=== PATIENT | female | born 1985 | race Caucasian/White ===

== ENCOUNTER 2016-11-10 10:43 | Inpatient (IN) | payer MEDICAID ==
[~2016-11-10] VITALS: Ht 149.9 cm; Wt 76.2 kg
[2016-11-10] MEDS ORDERED: PREN-380 PO (13:07)
[2016-11-10] MEDS ORDERED: METHYLERGONOVINE 0.2 MG/ML AMP IM PRN (15:15)
[2016-11-10] MEDS ORDERED: AMPICILLIN 2,000 MG in NACL 0.9% MINI-BAG PLUS 100 ML IV SCH (15:15)
[2016-11-10] MEDS ORDERED: PROMETHAZINE 25 MG/ML VIAL IVP PRN (15:15)
[2016-11-10] MEDS ORDERED: OXYTOCIN 10 UNITS/ML VIAL IM SCH (15:15)
[2016-11-10] MEDS ORDERED: NALBUPHINE HYDROCHLORIDE 10 MG/ML VIAL IVP PRN (15:15)
[2016-11-10] MEDS ORDERED: CARBOPROST 250 MCG/ML AMP IM PRN (15:15)
[2016-11-10] MEDS ORDERED: OXYTOCIN 20 UNITS/LR PREMIX 1,000 ML IV SCH ×2 (15:25→22:16)
[2016-11-10 15:55] LABS: BASOPHILS # (AUTO) 0.2 K/uL (0.00-0.22); BASOPHILS % (AUTO) 2.1 % (0.0-2.0); EOSINOPHILS # (AUTO) 0.1 K/uL (0-0.4); EOSINOPHILS % (AUTO) 1.6 % (0.0-4.0); HEMATOCRIT 37.5 % (36-48); HEMOGLOBIN 12.6 g/dL (12.0-16.0); LYMPHOCYTES # (AUTO) 1.7 K/uL (2.5-16.5); LYMPHOCYTES % (AUTO) 20.4 % (20.5-51.1); MEAN CORPUSCULAR HEMOGLOBIN 31 pg (27-31); MEAN CORPUSCULAR HGB CONC 34 g/dL (33-37); MEAN CORPUSCULAR VOLUME 91 fL (80-94); MONOCYTES # (AUTO) 0.3 K/uL (0.8-1.0); MONOCYTES % (AUTO) 3.1 % (1.7-9.3); NEUTROPHILS # (AUTO) 5.9 K/uL (1.8-7.7); NEUTROPHILS % (AUTO) 72.8 % (42.2-75.2); PLATELET COUNT (AUTO) 152 K/uL (140-450); RED BLOOD CELL COUNT(AUTO) 4.13 MIL/uL (4.20-5.40); RED CELL DISTRIBUTION WIDTH 12.9 % (11.6-13.7); WHITE BLOOD COUNT (AUTO) 8.2 K/uL (4.8-10.8)
[2016-11-10] MEDS ORDERED: AMPICILLIN 1,000 MG in NACL 0.9% MINI-BAG PLUS 50 ML IV SCH (16:00)
[2016-11-10 16:10] LABS: ANION GAP 14.6 (8-16); CALCIUM 9.1 mg/dL (8.5-10.1); CARBON DIOXIDE 23.2 mmol/L (21-32); CREATININE 0.7 mg/dL (0.6-1.3); POTASSIUM 3.8 mmol/L (3.5-5.1); TOTAL BILIRUBIN 0.3 mg/dL (0.0-1.0); TOTAL PROTEIN, SERUM 7.6 g/dL (6.4-8.2)
[2016-11-10 16:34] LABS: HIV RAPID SCREEN NON-REACTIVE (NON REACTIV)
[2016-11-10 16:38] LABS: APPEARANCE,URINE CLEAR (CLEAR); BILIRUBIN,URINE NEGATIVE (NEGATIVE); BLOOD, URINE NEGATIVE (NEGATIVE); COLOR,URINE YELLOW (YELLOW); LEUKOCYTE ESTERASE ,URINE NEGATIVE (NEGATIVE); NITRITE, URINE NEGATIVE (NEGATIVE); PROTEIN,URINE NEGATIVE (NEGATIVE); UGLUCOSE NEGATIVE (NEGATIVE); UROBILINOGEN,URINE 0.2 EU/dL (0.2 - 1)
[2016-11-10] MEDS: LACTATED RINGERS 1,000 ML IV SCH (17:35)
[2016-11-10 17:44] VITALS: BP 94/52
[2016-11-10] MEDS: CLINDAMYCIN 900 MG in DEXTROSE 5% 100 ML IV SCH (17:59)
[2016-11-10] MEDS ORDERED: NALBUPHINE 10 MG/ML AMP IVP PRN (22:20)
[2016-11-10 23:43] LABS: INR 0.9 (0.8-1.2); PARTIAL THROMBOPLASTIN TIME 27.1 secs (22-35.6); PROTHROMBIN TIME 9.3 secs (10.8-13.4)
[2016-11-11] MEDS: CLINDAMYCIN 900 MG in DEXTROSE 5% 100 ML IV SCH (02:19)
[2016-11-11] MEDS ORDERED: CLINDAMYCIN 900 MG/6 ML VIAL IV ONE (02:20)
[2016-11-11] MEDS ORDERED: OXYTOCIN 20 UNITS/LR PREMIX 1,000 ML IV ONE (02:57)
[2016-11-11] MEDS: LACTATED RINGERS 1,000 ML IV SCH ×2 (06:45→22:00)
--- NOTE | 2016-11-11 08:10 | NUR ---
PATIENT HAS BEEN SCREENED AND CATEGORIZED LOW NUTRITION RISK. PATIENT WILL BE SEEN WITHIN 7 DAYS OF ADMISSION. 11/17/[address]
[2016-11-11] MEDS ORDERED: BUPIVACAINE 0.125%/NS PREMIX 250 ML ONE ×2 (08:30→23:26)
[2016-11-11] MEDS ORDERED: LIDOCAINE 1% 50 ML ONE (12:38)
[2016-11-11 12:42] LABS: RAPID PLASMA REAGIN NON-REACTIVE (Non Reactiv)
[2016-11-12] MEDS ORDERED: OXYTOCIN 20 UNITS/LR PREMIX 1,000 ML IV ONE (02:36)
[2016-11-12] MEDS ORDERED: OXYTOCIN 10 UNITS/ML VIAL ONE ×2 (02:36→18:07)
[2016-11-12] MEDS ORDERED: CLINDAMYCIN 900 MG in DEXTROSE 5% 100 ML IV SCH (12:00)
[2016-11-12] MEDS ORDERED: MISOPROSTOL 100 MCG TAB ONE (13:17)
[2016-11-12] MEDS ORDERED: OXYTOCIN 20 UNITS/LR PREMIX 1,000 ML IV SCH (19:26)
[2016-11-12] MEDS ORDERED: oxyCODONE/APAP 5/325 MG 1 TAB TAB PO PRN (19:30)
[2016-11-12] MEDS ORDERED: MEASLES, MUMPS, AND RUBELLA 1 VIAL SQVAC PRN (19:30)
[2016-11-12] MEDS ORDERED: WITCH HAZEL 40 PAD PACKAGE TP PRN (19:30)
[2016-11-12] MEDS ORDERED: BENZOCAINE/MENTHOL 20%-0.5% 60 GM CAN TP PRN (19:30)
[2016-11-12] MEDS ORDERED: BISACODYL 5 MG TABEC PO PRN (19:30)
[2016-11-13 08:03] LABS: BASOPHILS % (AUTO) 0.4 % (0.0-2.0); EOSINOPHILS # (AUTO) 0.3 K/uL (0-0.4); EOSINOPHILS % (AUTO) 2.3 % (0.0-4.0); HEMATOCRIT 29.7 % (36-48); HEMOGLOBIN 9.6 g/dL (12.0-16.0); LYMPHOCYTES # (AUTO) 1.7 K/uL (2.5-16.5); LYMPHOCYTES % (AUTO) 14.9 % (20.5-51.1); MEAN CORPUSCULAR HEMOGLOBIN 30 pg (27-31); MEAN CORPUSCULAR HGB CONC 32 g/dL (33-37); MEAN CORPUSCULAR VOLUME 91 fL (80-94); MONOCYTES # (AUTO) 0.7 K/uL (0.8-1.0); MONOCYTES % (AUTO) 5.7 % (1.7-9.3); NEUTROPHILS # (AUTO) 8.9 K/uL (1.8-7.7); NEUTROPHILS % (AUTO) 76.7 % (42.2-75.2); PLATELET COUNT (AUTO) 120 K/uL (140-450); RED BLOOD CELL COUNT(AUTO) 3.25 MIL/uL (4.20-5.40); RED CELL DISTRIBUTION WIDTH 12.9 % (11.6-13.7); WHITE BLOOD COUNT (AUTO) 11.6 K/uL (4.8-10.8)
[2016-11-13] MEDS: ACETAMINOPHEN 325 MG TAB PO PRN (08:16)
[2016-11-14] MEDS: ACETAMINOPHEN 325 MG TAB PO PRN (05:53)
[2016-11-14] MEDS ORDERED: FERR325E14 PO (13:55)
[2016-11-14] MEDS ORDERED: ACET-9800 PO (13:57)
== END 2016-11-14 15:20 | disposition home or self-care (01) | DRG 560 ==
LOC: MLD 10:43 → MFCC 15:10 → OBSVTOIN 15:11 → MFCC 11-13 08:54
PROVIDERS: ADMIT Obstetrics & Gynecology; ATTEND Obstetrics & Gynecology
PROC: 10E0XZZ Delivery of Products of Conception, External Approach (ICD-10-PCS; principal; 2016-11-12)
PROC: 3E033VJ Introduction of Other Hormone into Peripheral Vein, Percutaneous Approach (ICD-10-PCS; 2016-11-12)
PROC: 0W8NXZZ Division of Female Perineum, External Approach (ICD-10-PCS; 2016-11-12)
PROC: 00HU33Z Insertion of Infusion Device into Spinal Canal, Percutaneous Approach (ICD-10-PCS; 2016-11-12)
PROC: 3E0R3CZ (ICD-10-PCS; 2016-11-12)
DX: O77.0 Labor and delivery complicated by meconium in amniotic fluid (principal); O43.123 Velamentous insertion of umbilical cord, third trimester; Z88.0 Allergy status to penicillin; Z37.0 Single live birth; Z3A.39 39 weeks gestation of pregnancy
CPT/HCPCS: G0378 ×4; 36415; 51702; 59025; 59409; 76805; 80053; 81003; 85025; 85379; 85610; 85730; 86592; 86886; 86900; 86901; J2001; J2590; J3490; J7060; J7120; Q0092